=== PATIENT | male | born 1990 | race Caucasian/White ===

== ENCOUNTER 2017-03-17 09:39 | Emergency (ER) | payer BC ==
[~2017-03-17] VITALS: Ht 182.9 cm; Wt 81.8 kg
[2017-03-17] MEDS ORDERED: GLUCOPHAGE1000 MG PO (09:47)
[2017-03-17] MEDS ORDERED: METRONIDAZOLE500 M1 PO (11:22)
[2017-03-17] MEDS ORDERED: ZOFRAN ODT4 MG PO (11:22)
[2017-03-17 11:29] VITALS: BP 136/85
== END 2017-03-17 11:25 | disposition home or self-care (01) ==
LOC: ED 09:39
DX: R11.2 Nausea with vomiting, unspecified (principal); R19.7 Diarrhea, unspecified; E11.9 Type 2 diabetes mellitus without complications; Z79.84 Long term (current) use of oral hypoglycemic drugs; L73.9 Follicular disorder, unspecified